=== PATIENT | female | born 1975 | race Caucasian/White ===

== ENCOUNTER 2016-09-11 11:19 | Emergency (ER) | payer MEDICAID ==
[2016-09-11 11:19] VITALS: BMI 33.3
[2016-09-11 11:43] VITALS: TEMP 98.3; O2SAT 100
[2016-09-11] MEDS ORDERED: Sodium Chloride 0.9% 1,000 ML IV STA (11:54)
[2016-09-11 12:20] LABS: BASO # 0.02 K/mm3 (0.0-2.0); BASO % 0.3 % (0.0-3.0); EOS # 0.1 (0.0-0.7); EOS % 1.7 % (1.5-5.0); GRAN # 4.91 (1.4-6.5); GRAN % 63.4 % (50.0-68.0); HEMOGLOBIN 12.5 gm/dL (12.0-16.0); LYMPH % 26.3 % (22.0-35.0); MEAN CELL VOLUME 78.2 fL (80.0-105.0); MEAN CORPUSCULAR HEMOGLOBIN 26.5 pg (25.0-35.0); MEAN CORPUSCULAR HGB CONC 33.9 g/dl (31.0-37.0); MEAN PLATELET VOLUME 10.5 fl (7.0-11.0); MONO # 0.6 (0.1-0.6); MONO % 8.3 % (1.0-6.0); PLATELET COUNT 229 10^3/uL (120.0-450.0); RBC 4.72 10^6/uL (3.5-6.1); RED CELL DISTRIBUTION WIDTH 14.3 % (11.5-14.5); WHITE BLOOD COUNT 7.7 10^3/ul (4.5-11.0)
[2016-09-11 12:31] LABS: PH,URINE 6.5 (4.7-8.0); URINE BILIRUBIN NEGATIVE (NEGATIVE); URINE BLOOD LARGE (NEGATIVE); URINE GLUCOSE (UA) NEGATIVE (NEGATIVE); URINE LEUKOCYTE ESTERASE TRACE Leu/uL (NEGATIVE); URINE NITRATE POSITIVE (NEGATIVE); URINE PROTEIN 100 mg/dL (<30 mg/dL)
[2016-09-11 12:32] LABS: URINE APPEARANCE CLOUDY (CLEAR); URINE COLOR RED (YELLOW)
[2016-09-11 12:33] LABS: ALB/GLOB RATIO 1.1 (1.1-1.8); ALBUMIN 3.9 g/dL (3.0-4.8); ALT/SGPT 27 U/L (7-56); AST/SGOT 23 U/L (15-39); BLOOD UREA NITROGEN 10 mg/dL (7-21); CALCIUM 8.4 mg/dL (8.4-10.5); GFR AFRICAN-AMERICAN > 60; GFR NON-AFRICAN AMERICAN > 60; INR 0.97 (0.93-1.08); LIPASE 89 U/L (23-300); PARTIAL THROMBOPLASTIN TIME 26.4 Seconds (23.7-30.8); PROTHROMBIN TIME 10.5 Seconds (9.9-11.8)
[2016-09-11 12:53] LABS: URINE BACTERIA FEW (NEG); URINE RBC TNTC /hpf (0-2); URINE WBC 0 - 2 /hpf (0-6)
--- NOTE | 2016-09-11 13:06 | ED PDOC ---
Arrival/HPI - General Chief Complaint: Abdominal Pain Time Seen by Provider: 09/11/16 11:49 Historian: Patient - History of Present Illness Narrative History of Present Illness (Text): 09/11/16 13:02 A 41 year old female presents to the emergency department complaining of right lower back pain for 1 day. Patients pain radiates to her right flank. Patient denies any relieving or exacerbating factors. Patient denies any fever, chills, nausea, vomiting, abdominal pain, urinary symptoms, chest pain, shortness of breath or any other complaints. 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 - Pulmonary Hx Asthma: Yes - Genitourinary/Gynecological Other/Comment: ovarian cyst - Psychiatric Hx Substance Use: No - Surgical History Hx Coronary Artery Bypass Graft: Yes Hx Open Heart Surgery: Yes Other/Comment: L4 and L5 Replacement - Anesthesia Hx Anesthesia: Yes Hx Anesthesia Reactions: No Family/Social History - Physician Review Nursing Documentation Reviewed: Yes Family/Social History: No Known Family HX Smoking Status: Never Smoked Hx Alcohol Use: No Hx Substance Use: No Allergies/Home Meds Allergies/Adverse Reactions: Allergies ceftriaxone Allergy (Severe, Verified 09/11/16 11:45) REDNESS Iodinated Contrast- Oral and IV Dye [Iodinated Contrast Media - IV Dye] Allergy (Severe, Verified 09/11/16 11:45) REDNESS Physical Exam - Physical Exam Narrative Physical Exam (Text): - Review of Systems Constitutional: Normal. absent: Fatigue, Weight Change, Fevers Eyes: Normal ENT: Normal Respiratory: Normal absent: SOB, Cough, Sputum Cardiovascular: Normal absent: Chest pain, Palpitations, Syncope Gastrointestinal: Normal absent: Abdominal pain, Diarrhea, Nausea, Vomiting Genitourinary: Normal. absent: Dysuria, Frequency, Hematuria Musculoskeletal: (+) Right lower back/flank pain absent: Arthralgias, Neck Pain Skin: Normal Neurological: Normal absent: Focal Weakness Endocrine: Normal Hemo/Lymphatic: Normal Psychiatric: Normal - Physical exam Patient appears age appropriate, speaking full sentences without difficulty - Systems Exam Head: Present: Atraumatic, Normocephalic Pupils: Present: PERRL Extraocular Muscles: Present: EOMI Conjunctiva: Present: Normal Mouth: Present: Moist Mucous Membranes Neck: Present: Normal Range of Motion. No: MIDLINE TENDERNESS, Paraspinal Tenderness Respiratory/Chest: Present: Clear to Auscultation, Good Air Exchange. No: Respiratory Distress, Accessory Muscle Use, Tachypnic Cardiovascular: Present: Regular Rate and Rhythm, Normal S1, S2, Peripheral Pulses Present. No: Murmurs Abdomen: Present: Normal Bowel Sounds, No: Tenderness, Peritoneal Signs, Rebound, Guarding, Distention Back: Present: Right lower back and flank tenderness to palpation No: Midline Tenderness Upper Extremity: Present: Normal Inspection. No: Cyanosis, Edema Lower Extremity: Present: Normal Inspection. No: Edema Neurological: Present: GCS=15, Speech Normal, cranial nerves II through XII fully intact with no cerebellar abnormality, neuro-sensory fully intact. No focal neurological deficits. Skin: Present: Warm, Dry, Normal Color. No: Rashes Lymphatic: Present: OX3, NI, NC Psychiatric: Present: Alert, Oriented x 3, Normal Insight, Normal Concentration Vital Signs Reviewed: Yes Vital Signs Temp Pulse Resp BP Pulse Ox 09/11/16 14:00 60 16 143/79 100 09/11/16 11:39 98.3 F 59 L 18 148/94 H 100 Temperature: Afebrile Blood Pressure: Hypertensive Pulse: Bradycardic Respiratory Rate: Normal Appearance: Positive for: Well-Appearing, Non-Toxic, Comfortable Pain Distress: None Mental Status: Positive for: Alert and Oriented X 3 Medical Decision Making ED Course and Treatment: 09/11/16 13:02 Impression: A 41 year old female with right lower back/flank pain. Afebrile, vss Differential Diagnosis included but are not limited to: UTI vs. Pyelonephritis vs. Renal colic Plan: -- Abdomen and pelvis CT -- EKG -- Labs -- Urine culture and Urinalysis -- Toradol and IV fluids -- Reassess and disposition Progress Notes: Report Date : 09/11/2016 13:53:45 PROCEDURE: CT Abdomen and Pelvis without intravenous contrast Dictator : Liborio Polo MD IMPRESSION: 1. 4 mm calculus at the distal right ureter just a few cm proximal the right ureterovesical junction causes right mild obstructive uropathy. 2. Left colonic diverticulosis appears nonacute and mild. 09/11/16 16:25 pt has been observed in the ER tolerated PO without difficulty denies pain, nausea, vomiting or f/c states she feels comfortable being dc'd home with outpatient f/u pt was offered observation stay in the hospital, but asked to be dc'd home instead Pt states she understands to return to the ER right away for new or worsening symptoms or for inability to f/u with PMD or specialist as instructed. Patient states that she fully agrees with and understands discharge instructions. States that she agrees with the plan and disposition. Verbalized and repeated discharge instructions and plan. I have given the patient opportunity to ask any additional questions. - Lab Interpretations Lab Results: 09/11/16 12:00 09/11/16 12:00 Lab Results 09/11/16 12:00: PT 10.5, INR 0.97, APTT 26.4 09/11/16 12:00: WBC 7.7, RBC 4.72, Hgb 12.5, Hct 36.9, MCV 78.2 L, MCH 26.5, MCHC 33.9, RDW 14.3, Plt Count 229, MPV 10.5, Gran % 63.4, Lymph % (Auto) 26.3, [place] % (Auto) 8.3 H, Eos % (Auto) 1.7, Baso % (Auto) 0.3, Gran # 4.91, Lymph # 2.0, [place] # 0.6, Eos # 0.1, Baso # 0.02 09/11/16 12:00: Sodium 138, Potassium 3.8, Chloride 106, Carbon Dioxide 22, Anion Gap 14, BUN 10, Creatinine 0.6, Est GFR ( Amer) > 60, Est GFR (Non- Af Amer) > 60, Random Glucose 97, Calcium 8.4, Total Bilirubin 0.5, AST 23, ALT 27, Alkaline Phosphatase 83, Total Protein 7.5, Albumin 3.9, Globulin 3.6, Albumin/Globulin Ratio 1.1, Lipase 89 09/11/16 11:50: Urine Color Red, Urine Appearance Cloudy, Urine pH 6.5, Ur Specific [place] 1.025, Urine Protein 100 H, Urine Glucose (UA) Negative, Urine Ketones Trace H, Urine Blood Large H, Urine Nitrate Positive H, Urine Bilirubin Negative, Urine Urobilinogen 1.0 H, Ur Leukocyte Esterase Trace H, Urine RBC Tntc, Urine WBC 0 - 2, Ur Epithelial Cells 1 - 3, Urine Bacteria Few I have reviewed the lab results: Yes - RAD Interpretation Radiology Orders: 09/11/16 11:51 ABD & PELVIS W/O PO OR IV CONT [CT] Stat - Medication Orders Current Medication Orders: Discontinued Medications Sodium Chloride (Sodium Chloride 0.9%) 1,000 mls @ 1,000 mls/hr IV .Q1H STA Stop: 09/11/16 12:53 Last Admin: 09/11/16 12:16 Dose: 1,000 mls/hr Ciprofloxacin (Cipro 400mg/200ml Dsw) 400 mg in 200 mls @ 133.3 mls/hr IVPB STAT STA PRN Reason: Protocol Stop: 09/11/16 15:01 Last Admin: 09/11/16 14:12 Dose: 133.3 mls/hr Ketorolac Tromethamine (Toradol) 30 mg IVP STAT STA Stop: 09/11/16 11:55 Last Admin: 09/11/16 12:16 Dose: 30 mg Morphine Sulfate (Morphine) 6 mg IVP STAT STA Stop: 09/11/16 13:58 Last Admin: 09/11/16 14:12 Dose: 6 mg - Scribe Statement The provider has reviewed the documentation as recorded by the Lazaro Bowman Provider Scribe Attestation: All medical record entries made by the Scribe were at my direction and personally dictated by me. I have reviewed the chart and agree that the record accurately reflects my personal performance of the history, physical exam, medical decision making, and the department course for this patient. I have also personally directed, reviewed, and agree with the discharge instructions and disposition. Disposition/Present on Arrival - Present on Arrival Any Indicators Present on Arrival: No History of DVT/PE: No History of Uncontrolled Diabetes: No Urinary Catheter: No History of Decub. Ulcer: No History Surgical Site Infection Following: None - Disposition Have Diagnosis and Disposition been Completed?: Yes Diagnosis: Renal colic Disposition: HOME/ ROUTINE Disposition Time: 16:29 Patient Plan: Discharge Condition: GOOD Discharge Instructions (ExitCare): Renal Colic (ED), Urinary Tract Infection in Women (ED) Additional Instructions: PLEASE RETURN TO THE EMERGENCY DEPARTMENT FOR NEW OR WORSENING SYMPTOMS. RETURN RIGHT AWAY IF YOU CANNOT FOLLOW UP WITH YOUR PRIMARY CARE DOCTOR, CLINIC, OR SPECIALIST IN 1-2 DAYS. Prescriptions: Ciprofloxacin [Cipro] 500 mg PO Q12 #10 tab Ibuprofen [Motrin] 600 mg PO Q8 PRN #12 tab PRN Reason: Pain, Moderate (4-7) Tamsulosin [Flomax] 0.4 mg PO DAILY #4 cap Referrals: PCP,NO [Primary Care Provider] - Follow up with primary Jorje Lopez MD [Staff Provider] - Follow up with primary Kaela Lopez MD [Staff Provider] - Follow up with primary Forms: [facility] ([place]ian), WORK NOTE
[2016-09-11] MEDS ORDERED: Ciprofloxacin 400mg/200ml D5W 400 MG/200 ML BAG IVPB STA (13:31)
--- NOTE | 2016-09-11 13:55 | CT ---
PROCEDURE: CT Abdomen and Pelvis without intravenous contrast HISTORY: R. side abd pain COMPARISON: None. TECHNIQUE: Helical CT of the abdomen and pelvis was performed without oral or intravenous contrast as per referring physician request.. Contrast Dose: None Radiation dose: Total exam DLP = 860 mGy-cm. This CT exam was performed using one or more of the following dose reduction techniques: Automated exposure control, adjustment of the mA and/or kV according to patient size, and/or use of iterative reconstruction technique. FINDINGS: LOWER THORAX: No pleural or pericardial effusion. LIVER: Unremarkable. No gross lesion or ductal dilatation. GALLBLADDER AND BILE DUCTS: Unremarkable. PANCREAS: Unremarkable. No gross lesion or ductal dilatation. SPLEEN: Unremarkable. ADRENALS: Unremarkable. No mass. KIDNEYS AND URETERS: There is mild right hydroureteronephrosis caused by 4 mm calculus obstructing distal right ureter just a few cm proximal right uterus with junction. No significant perinephric reaction bilaterally. No left-sided radiodense urolithiasis or obstructive uropathy. VASCULATURE: Unremarkable. No aortic aneurysm. BOWEL: Left colonic diverticulosis appears mild but not acute. No bowel obstruction apparent throughout. APPENDIX: Unremarkable. Normal appendix. PERITONEUM: Unremarkable. No free fluid. No free air. LYMPH NODES: Unremarkable. No enlarged lymph nodes. BLADDER: Unremarkable. REPRODUCTIVE: Unremarkable. 3.2 cm left adnexal cysts is incidentally encounter. 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 OTHER FINDINGS: None. IMPRESSION: 1. 4 mm calculus at the distal right ureter just a few cm proximal the right ureterovesical junction causes right mild obstructive uropathy. 2. Left colonic diverticulosis appears nonacute and mild.
[2016-09-11 14:14] VITALS: PULSE 60; RESP 16
--- NOTE | 2016-09-11 15:18 | CARD ---
APPROVED REPORT EKG Measurement Heart [id number] <Conclusion> Normal sinus rhythm Normal ECG
[2016-09-11 16:43] VITALS: BP 138/82
== END 2016-09-11 16:40 | disposition home or self-care (01) ==
LOC: ED 11:19
DX: N20.1 Calculus of ureter (principal); I10 Essential (primary) hypertension; Z95.1 Presence of aortocoronary bypass graft
CPT/HCPCS: 74176; 80053; 81001; 83690; 85025; 85610; 85730; 87086; 93005; 96361; 96365; 96366; 96375; 99285; J0744; J1885; J2270; J7040